=== PATIENT | male | born 1985 | race Caucasian/White ===

== ENCOUNTER 2021-12-17 06:09 | Day surgery (SDC) | payer OTHER ==
[2021-12-16 10:21] LABS: COVID AG,FIA SOURCE NASOPHARYNGEAL
[~2021-12-17] VITALS: Ht 188 cm; Wt 145.4 kg
[~2021-12-17 06:09] MED LIST: LISI40TA9 PO; SODIUM CHLORIDE 0.9% 1,000 ML IV ONE
[2021-12-17] MEDS ORDERED: LIDOCAINE 2% 5 ML JELLY TP ONE (06:10)
[2021-12-17] MEDS ORDERED: LIDOCAINE 4% 50 ML SOLUTION TP ONE (06:10)
[2021-12-17] MEDS ORDERED: BENZOCAINE 20% 50 MCG/SPRAY 57 GM TP ONE (06:10)
[2021-12-17] MEDS ORDERED: SODIUM CHLORIDE 0.9% 1,000 ML ONE (06:38)
[2021-12-17] MEDS ORDERED: FentaNYL CITRATE PF 100 MCG/2 ML VIAL ONE (08:14)
[2021-12-17] MEDS ORDERED: MIDAZOLAM HCL 5 MG/ML VIAL ONE (08:14)
[2021-12-17 08:25] LABS: GLUCOMETER DEV NAME(LOC) SDS.; GLUCOSE,POINT OF CARE 155 MG/DL (70-110)
[2021-12-17] MEDS ORDERED: MethylPREDNISolone SOD SUCC 125 MG/2 ML VIAL IVP ONE (09:15)
[2021-12-17] MEDS ORDERED: OXYGEN THERAPY IH SCH (20:00)
== END 2021-12-17 11:35 | disposition home or self-care (01) ==
LOC: SURGERY 06:09
PROVIDERS: ATTEND Internal Medicine Critical Care Medicine
DX: J38.4 Edema of larynx (principal); E11.9 Type 2 diabetes mellitus without complications; B37.0 Candidal stomatitis; Z98.890 Other specified postprocedural states; Z79.899 Other long term (current) drug therapy
CPT/HCPCS: 31623; 31624; 71045; 82962; 87015; 87070; 87101; 87206; 87220; 87426; 88108; 88184; 88185; C9803; J2250; J2930; J3010; J7030; Z7610